=== PATIENT | male | born 1970 | race Caucasian/White ===

== ENCOUNTER 2018-10-26 13:19 | Inpatient (IN) | payer MEDICAID, OTHER ==
[~2018-10-26] VITALS: Ht 177.8 cm; Wt 111.5 kg
[2018-10-26] MEDS ORDERED: LORazepam 2 MG TAB PO STA (13:43)
[2018-10-26] MEDS ORDERED: FLUTISP NARES (13:50)
[2018-10-26] MEDS ORDERED: CELE1CAP9 PO (13:50)
[2018-10-26] MEDS ORDERED: OMEP40CA2 PO (13:50)
[2018-10-26] MEDS ORDERED: ATOR1TAB21 PO (13:50)
[2018-10-26] MEDS ORDERED: IBUP200T45 PO (13:50)
[2018-10-26] MEDS ORDERED: FERR1TAB8 PO (13:50)
[2018-10-26] MEDS ORDERED: LORA-243 PO (13:50)
[2018-10-26] MEDS ORDERED: RANI150T PO (13:51)
[2018-10-26 14:27] LABS: HEMATOCRIT 41.3 % (42.0-52.0); HEMOGLOBIN 14.5 g/dl (13.5-17.5); MEAN CORPUSCULAR HEMOGLOBIN 30.5 pg (27.0-33.0); MEAN CORPUSCULAR HGB CONC 35.1 g/dl (32.0-36.5); MEAN CORPUSCULAR VOLUME 86.8 fl (80.0-96.0); PLATELET COUNT, AUTOMATED 215 10^3/uL (150-450); RED BLOOD COUNT 4.76 10^6/uL (4.30-6.10); WHITE BLOOD COUNT 8.2 10^3/uL (4.0-10.0)
[2018-10-26 15:20] LABS: ACETAMINOPHEN LEVEL < 2.0 UG/ML (10.0-30.0); ALBUMIN 4.1 GM/DL (3.2-5.2); ALT/SGPT 36 U/L (12-78); BILIRUBIN,DIRECT 0.2 MG/DL (0.0-0.2); BILIRUBIN,TOTAL 0.7 MG/DL (0.2-1.0); BLOOD UREA NITROGEN 8 MG/DL (7-18); CALCIUM LEVEL 8.9 MG/DL (8.5-10.1); CARBON DIOXIDE LEVEL 23 MEQ/L (21-32); CHLORIDE LEVEL 104 MEQ/L (98-107); CPK CREATINE PHOSPHOKINASE 84 U/L (39-308); CREATININE FOR GFR 0.99 MG/DL (0.70-1.30); ETHYL ALCOHOL (ETHANOL) < 0.003 % (0.000-0.010); GLOMERULAR FILTRATION RATE > 60.0 (>60); GLUCOSE, FASTING 96 MG/DL (70-100); POTASSIUM SERUM 3.8 MEQ/L (3.5-5.1); SALICYLATE LEVEL < 1.7 MG/DL (5.0-30.0); SODIUM LEVEL 139 MEQ/L (136-145); TOTAL PROTEIN 7.1 GM/DL (6.4-8.2)
[2018-10-26 15:22] LABS: AMPHETAMINES LEVEL URINE NEGATIVE (NEGATIVE); BARBITURATES URINE NEGATIVE (NEGATIVE); BENZODIAZEPINES URINE NEGATIVE (NEGATIVE); CANNABINOIDS URINE POSITIVE (NEGATIVE); COCAINE METABOLITE URINE POSITIVE (NEGATIVE); METHADONE URINE NEGATIVE (NEGATIVE); OPIATES URINE NEGATIVE (NEGATIVE); PHENCYCLIDINE URINE NEGATIVE (NEGATIVE)
[2018-10-26] MEDS ORDERED: MAALOX 30 ML SUSP *UDC PO PRN (16:00)
[2018-10-26] MEDS ORDERED: traZODone 50 MG TAB PO PRN (16:00)
[2018-10-26] MEDS ORDERED: MOM 30ML SUSPENSION UDC PO PRN (16:00)
[2018-10-26] MEDS ORDERED: ACETAMINOPHEN TAB 650MG DOSE (2X325MG) PO PRN (16:00)
[2018-10-26] MEDS ORDERED: CLAR10CA3 PO (16:12)
[2018-10-26 17:45] VITALS: BP 133/83
--- NOTE | 2018-10-26 20:25 | ECGEPIP ---
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
[2018-10-27] MEDS ORDERED: NICOTINE POLACRILEX 2 MG GUM PO PRN (01:15)
[2018-10-27] MEDS ORDERED: IBUPROFEN 600 MG TAB PO PRN (01:15)
[2018-10-27] MEDS ORDERED: LORATADINE 10 MG TAB PO SCH (09:00)
[2018-10-27] MEDS ORDERED: CelecoXIB (CeleBREX) 100 MG CAP PO SCH (09:00)
[2018-10-27] MEDS ORDERED: FAMOTIDINE 20 MG TAB PO SCH (09:00)
--- NOTE | 2018-10-27 09:08 | HPEPDOC ---
[facility] Medical History & Physical Date of Admission Oct 26, 2018 History and Physical PCP: Cathi RESTREPO ATTENDING: Dr. Lee Benitez HPI: 48 yo M admitted to [facility] for unspecified depressive disorder, being medically examined today. The patient was brought to the emergency department after making statements of SI at [facility] The patient reports no medical complaints at this time. He rises to the exam room however quickly becomes agitated and states he will not participate with history or physical exam. The patient left the room. History is taken from the chart. PMHx: Back pain/DDD. Followed by pain management in the past. GERD Osteoarthritis Dyslipidemia Allergic rhinitis Iron deficiency PSHX: Appendectomy Right knee surgery SOCHX: from his . Resides in: [facility] ETOH: Patient reported in the emergency department his last drink was 4 years ago. Illicit Drugs: Marijuana, History of cocaine use, states recently relapsed on cocaine as per ED record. Patient declines to provide any additional history at this time. FAMHX: Patient declines to provide any additional history at this time. ROS: Patient declines to provide any additional history at this time. PE: The patient appears to be agitated at this time and leaves examination room. Vital Signs Label Value Date Time Patient Temperature 97.7 degrees F 10/26/18 1745 Pulse 89 10/26/18 1745 Respiratory Rate 18 bpm 10/26/18 1745 Blood Pressure Assessment 133/83 (100) 10/26/18 1745 Bedside Pulse Oximetry 95 % 10/26/18 1745 Item Value Date Time Oxygen Delivery Method Room Air 10/26/18 1745 EKG: SINUS BRADYCARDIA WITH SINUS ARRHYTHMIA PROLONGED QTC NO PRIOR FOR COMPARISON Electronically Signed On 10-26-2018 20:24:26 EST by Rebekah Whitley A&P: 48 yo M admitted to [facility] for unspecified depressive disorder 1. Psych. Plan per Psychiatry. EKG today pending. 2. Prolonged QT. Noted on admission EKG 10/26/17, no prior for comparison available. Request repeat EKG today. Potassium level was noted within normal limits. Add magnesium level to labs. Would advise caution with medications which may prolong QT interval. 3. Follow up with PCP on discharge. 4. History of Substance use. Management per psychiatry. 5. Abnormal TSH. Recheck TFTs in a.m. 6. Chronic back pain. Continue ibuprofen 600 mg by mouth twice a day as needed. Avoid Celebrex if patient is using ibuprofen. Tylenol 650 mg every 6 hours as needed. Consider pain management consultation if needed. 7. Dyslipidemia. Continue Lipitor 20 g by mouth daily. 8.Allergic rhinitis. Continue Flonase 2 sprays each nostril daily. Continue Claritin 10 mg by mouth daily. 9.GERD. Continue ranitidine 150 mg by mouth twice a day. 10. Iron deficiency. Continue ferrous sulfate 325 mg 11. Staff member Sanjay assisted in attempting exam. Vital Signs Vital Signs Date Time Temp Pulse Resp B/P (MAP) Pulse Ox O2 Delivery O2 Flow Rate FiO2 10/26/18 17:45 97.7 89 18 133/83 (100) 95 Room Air Laboratory Data Labs 24H Laboratory Tests 2 10/26/18 14:06: Nucleated Red Blood Cells % (auto) 0.0, Anion Gap 12, Glomerular Filtration Rate > 60.0, Calcium Level 8.9, Aspartate Amino Transf (AST/SGOT) 19, Alanine Aminotransferase (ALT/SGPT) 36, Alkaline Phosphatase 85, Total Bilirubin 0.7, Direct Bilirubin 0.2, Total Creatine Kinase 84, Total Protein 7.1, Albumin 4.1, Albumin/Globulin Ratio 1.37, Thyroid Stimulating Hormone (TSH) 4.760H, Salicylates Level < 1.7L, Urine Amphetamines Screen NEGATIVE, Urine Benzodiazepines Screen NEGATIVE, Urine Opiates Screen NEGATIVE, Urine Methadone Screen NEGATIVE, Acetaminophen Level < 2.0L, Urine Barbiturates Screen NEGATIVE, Urine Phencyclidine Screen NEGATIVE, Urine Cocaine Metabolite Screen POSITIVEH, Urine Cannabinoids Screen POSITIVEH, Ethyl Alcohol Level < 0.003 CBC/BMP Laboratory Tests 10/26/18 14:06 Red Blood Count 4.76, Mean Corpuscular Volume 86.8, Mean Corpuscular Hemoglobin 30.5, Mean Corpuscular Hemoglobin Concent 35.1, Red Cell Distribution Width 12.7 Home Medications Scheduled (Celecoxib) 200 Mg Cap, 200 MG PO DAILY Atorvastatin Calcium (Atorvastatin Calcium) 20 Mg Tab, 20 MG PO DAILY Ferrous Sulfate (Ferrous Sulfate) 325 Mg Tab, 975 MG PO DAILY Loratadine (Claritin) 10 Mg Cap, 10 MG PO DAILY Omeprazole (Omeprazole) 40 Mg Cap, 40 MG PO BID Ranitidine HCl (Ranitidine HCl) 150 Mg Tab, 150 MG PO BID Scheduled PRN Fluticasone Propionate (Fluticasone Propionate) 50 Mcg/Act Spr, 1-2 SPRAYS NARES DAILY PRN for CONGESTION Ibuprofen (Ibu-200) 200 Mg Tab, 600 MG PO BID PRN for PAIN Allergies Coded Allergies: Codeine (Verified Adverse Reaction, Unknown, "stomach cramps, bleeding", 10/26/18) Kim Becerra Oct 27, 2018 09:08
[2018-10-27] MEDS ORDERED: FLUTICASONE PROP 0.05% NASAL SPRAY 16 GM (FLONASE) NARES PRN (09:15)
[2018-10-27] MEDS: FERROUS SULFATE 325MG TAB PO SCH ×2 (09:57→15:17)
[2018-10-27] MEDS ORDERED: LORazepam 2 MG TAB PO ONE (11:00)
[2018-10-27] MEDS ORDERED: SERTRALINE HCL 50 MG TAB PO ONE (11:00)
[2018-10-27] MEDS ORDERED: hydrOXYzine 50 MG TAB PO PRN (11:00)
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
[2018-10-27] MEDS ORDERED: TRAZO50TA PO (14:16)
[2018-10-27] MEDS ORDERED: ATOR1TAB21 PO (14:16)
[2018-10-27] MEDS ORDERED: FLUTISP NARES (14:16)
[2018-10-27] MEDS ORDERED: FERR1TAB8 PO (14:16)
[2018-10-27] MEDS ORDERED: HYDRO50TAB PO (14:16)
[2018-10-27] MEDS ORDERED: IBUP200T45 PO (14:16)
[2018-10-27] MEDS ORDERED: CLAR10CA3 PO (14:16)
[2018-10-27] MEDS ORDERED: RANI150T PO (14:16)
[2018-10-27] MEDS ORDERED: OMEP40CA2 PO (14:16)
[2018-10-27] MEDS ORDERED: SERT50TA PO (14:16)
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
[2018-10-28] MEDS ORDERED: ATORVASTATIN 20 MG TAB PO SCH (09:00)
[2018-10-28] MEDS ORDERED: SERTRALINE HCL 50 MG TAB PO SCH (09:00)
== END 2018-10-27 16:50 | disposition home or self-care (01) | DRG 754 ==
LOC: M ED 13:19 → M ED INP 16:00 → M PSY 17:38
PROVIDERS: ADMIT Psychiatry & Neurology Psychiatry; ATTEND Psychiatry & Neurology Psychiatry
DX: F32.9 Major depressive disorder, single episode, unspecified (principal); E78.5 Hyperlipidemia, unspecified; F12.90 Cannabis use, unspecified, uncomplicated; F10.10 Alcohol abuse, uncomplicated; D50.9 Iron deficiency anemia, unspecified; F14.90 Cocaine use, unspecified, uncomplicated; Z79.899 Other long term (current) drug therapy; Z88.5 Allergy status to narcotic agent; K21.9 Gastro-esophageal reflux disease without esophagitis; J30.9 Allergic rhinitis, unspecified; M19.90 Unspecified osteoarthritis, unspecified site; M54.5 Low back pain